=== PATIENT | male | born 1950 | race Caucasian/White ===

== ENCOUNTER → 2024-11-18 | Day surgery (SDC) | payer OTHER, SELFPAY ==
--- NOTE | 2024-11-15 11:52 | EKG_ITS ---
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
[2024-11-15 13:12] LABS: Basophils % (Auto) 1 % (0-2.5); Eosinophils # (Auto) 0.1 Thou/mm3 (0.0-0.5); Eosinophils % (Auto) 2 % (0-10); Immature Granulocytes % (Auto) 1 % (0-0); Immature Granulocytes Auto 0.03 Thou/mm3 (0.00-0.00); Lymphocytes # (Auto) 1.5 Thou/mm3 (1.0-4.8); Lymphocytes % (Auto) 25 % (10-50); Mean Corpuscular HGB Conc 34.2 g/dl (31.0-37.0); Mean Corpuscular Hemoglobin 34.4 pg (25.0-35.0); Mean Corpuscular Volume 101 fL (80-100); Monocytes # (Auto) 0.5 Thou/mm3 (0.0-0.8); Monocytes % (Auto) 8 % (0-12); Neutrophils # (Auto) 3.9 Thou/mm3 (1.8-7.7); Neutrophils % (Auto) 63 % (37-80); Nucleated Red Blood Cell % 0 /100 WBC (0); Platelet Count 128 Thou/mm3 (140-440); RDW Standard Deviation 47.9 fL (35.1-43.9); Red Blood Count 3.78 Miln/mm3 (4.50-5.90); White Blood Count 6.1 Thou/mm3 (3.8-10.6)
[2024-11-15 13:22] LABS: Partial Thromboplastin Time 23.9 Seconds (22.0-36.0); Prothrombin Time 11.1 Seconds (9.0-12.2)
[2024-11-15 13:24] LABS: Anion Gap 8 (7-16); BUN/Creatinine Ratio 18 Ratio (12-20); Blood Urea Nitrogen 23 mg/dL (9-23); Calcium 8.8 mg/dL (8.3-10.6); Carbon Dioxide 27.2 mMol/L (20.0-31.0); Chloride 107 mMol/L (98-107); Creatinine (Component) 1.3 mg/dL (0.6-1.3); Glucose 113 mg/dL (74-106); Osmolality,Calculated 287 (275-295); Potassium 4.7 mMol/L (3.4-5.1); Sodium 142 mMol/L (136-145); eGFR 58 See Note
[2024-11-15 15:02] VITALS: BMI 31.5
[2024-11-18] VITALS (22 sets, daily range): BP systolic 125–195; BP diastolic 70–98; PULSE 51–69; RESP 12–20; TEMP 36.1–36.5; O2SAT 95–99; BMI 32.1
[2024-11-18] MEDS: hydrALAZINE INJ 20 MG/ML VIAL 10 MG IV ×2 (10:16→10:50)
[2024-11-18] MEDS: HYDROcodone/APAP 5/325 TABLET 1 TAB PO (12:00)
--- NOTE | 2024-11-18 12:25 | PC.NURSE ---
1011 patient is awake, alert, breathing unlabored, s/p LHC by Dr. Cody, arterial sheath present to right groin, no active bleeding noted. Report received from Vickey RN, patient to recover for 6 hrs post hemostasis. May remove arterial sheath now. Blood pressur elevated, Dr. Cody notified, new order received for hydralazine IVP. 1016 hydralazine 10mg given IVP 1043 arterial sheath removed from right groin, manual pressure applied 1103 Manual pressure removed, no active bleeding or hematoma noted, site covered with 4x4 and tegaderm, sand bag applied 1133 sandbag removed, no bleeding or hematoma noted. 1200 patient starting to complain of generalized pain from laying flat, especially shoulder pain which has been chronic. norco 5/325 1 tab given after eating sandwich.
--- NOTE | 2024-11-18 13:43 | ESOP_ITS ---
RE: MINH MITCHELL : 1950 DATE OF OPERATION: 11/18/2024 PROCEDURE PERFORMED: 1. Left heart catheterization. 2. LV angiography. 3. Selective left and right coronary angiography. 4. Aortic root angiography, 5. Selective bypass graft angiography. 6. Selective right femoral arterial angiography. 7. Conscious sedation monitoring. INDICATIONS FOR PROCEDURE: The patient with history of chronic hypertension, history of hyperlipidemia, history of arteriosclerotic heart disease requiring coronary artery bypass graft surgery in 1993. The patient is having severe symptoms of anginal chest pain in spite of medical management. DETAILS OF THE PROCEDURE: After explaining the procedure in detail to the patient and after obtaining a proper consent, the patient was given a total of 1 mg of intravenous Versed and 75 mcg of intravenous fentanyl before and during the procedure. The right groin area was prepped with antiseptic solution. Local anesthetic 2% lidocaine was used and right femoral artery was punctured by Seldinger technique and a Hemoclip sheath size 6-Cuban was put in the right femoral artery. Through the sheath, a pigtail catheter size 6-Cuban was advanced though difficulty was noted to advance the pigtail catheter with the guidewire in the lower abdominal area. The guidewire at that time was changed to a glidewire, which was able to be advanced and the pigtail catheter was put in the ascending aorta. Aortic pressure was recorded and catheter was placed across the aortic valve into the left ventricle. Left ventricular pressure was recorded and LV angiography was performed in JORDAN view using 36 mL of dye at a rate of 12 mL per second over a period of 3 seconds. After the left ventricular angiography, the pullback pressure recorded from left ventricle into the aorta and aortic root angiography was performed in [place] view using 30 mL of dye at a rate of 15 mL per second over a period of 2 seconds. After the aortic root angiography, the catheter was exchanged using an exchange wire with the left coronary Dinorah catheter size 6-Cuban JL4. The catheter was positioned at the ostium of the left main coronary artery and left coronary angiography was performed in several different views. After the left coronary angiography, the catheter was exchanged with preformed right coronary Dinorah catheter size 6-Cuban JR4, which was advanced with the help of a J-wire and positioned over the right coronary ostium. Three views of the right coronary artery were taken and after the right coronary angiography with the same catheter, vein bypass graft angiography was performed. After the vein bypass graft angiography, the catheter was exchanged with left 5-Cuban internal mammary artery catheter, though difficulty was noted to advance the internal mammary artery catheter, size 5-Cuban, which was then changed to size 6-Cuban internal mammary artery catheter, which was able to be advanced and positioned in the proximal left subclavian artery and left subclavian artery angiography was performed in two different views. The internal mammary artery noted to be a very small caliber vestigial vessel. At that point, the catheter was pulled out and right femoral arterial angiography was performed in [place] as well as in [place] views. As the distal right common femoral artery showed calcification and puncture site was close to the bifurcation, the local pressure was applied to obtain hemostasis of the right femoral arterial puncture site. The patient tolerated the procedure very well without any complication. RESULTS OF THE PROCEDURE: As follows The hemodynamic data showed aortic pressure 176/75 with a mean of 110. The left ventricular pressure 181/20. The post angiography, left ventricular pressure 169/19. There is no gradient noted across the aortic valve on pullback pressure. The left ventricular angiography showed normal-sized left ventricle with small segment of mid anterior wall akinesis with overall fairly good left ventricular systolic function with ejection fraction of 50%. No evidence of mitral regurgitation is noted. The aortic root angiography showed normal-sized aortic root with single vein bypass graft visualized. No evidence of aortic regurgitation is noted. Coronary angiography showed left main coronary artery normal. The left anterior descending coronary artery is totally occluded at its ostium and is calcified. The distal left anterior descending coronary artery is filling from the vein bypass graft. The circumflex coronary artery showed 90% calcific stenosis in its proximal portion, which extends beyond the first obtuse marginal branch. The first obtuse marginal branch though is a tiny caliber vessel. The distal circumflex coronary artery is normal and is free of any luminal narrowing with good flow. Right coronary angiography showed large dominant right coronary artery with 80% eccentric stenosis, which is calcific in its proximal portion and 70% eccentric stenosis, which is calcific in its mid portion. Good distal flow in the right coronary artery is noted. The posterior descending branch as well as LV posterolateral branch of the right coronary artery are normal. The vein bypass graft to the mid left anterior descending coronary artery is patent and is free of any luminal narrowing. Good distal flow is noted in the left anterior descending coronary artery. The left subclavian angiography showed normal proximal portion with the left internal mammary artery being very vestigial and tiny caliber. The right femoral arterial angiography showed luminal irregularity with calcification in the distal right common femoral artery and 20% stenosis. The puncture site is close to the bifurcation of the right common femoral artery. FINAL IMPRESSION: 1. Severe unga vessel coronary artery disease with 100% occlusion of the proximal left anterior descending coronary artery, 90% calcific stenosis of the proximal left circumflex coronary artery, 80% eccentric and calcific stenosis of the proximal right coronary artery, and 70% calcific and eccentric stenosis of the mid right coronary artery. 2. Patent vein bypass graft to the mid left anterior descending coronary artery. 3. Small segment of left ventricular anterior wall akinesis with overall normal left ventricular systolic function with ejection fraction of 50%. 4. Calcification and mild stenosis of the distal right common femoral artery. RECOMMENDATIONS: The patient was referred to Dr. Jung Salazar for evaluation for possible percutaneous coronary intervention of the calcific proximal left circumflex coronary artery as well as proximal and mid right coronary artery. DT: 10:54:40 TT: 13:42:00 Ref: [id number] - TID: [id number]
--- NOTE | 2024-11-18 14:10 | PC.NURSE ---
1245 patient is awake, alert, breathing unlabored, dressing to right groin dry with no bleeding, report given to Carla ALAMO, pt voided 50ml via urinal 1320 report received from Carla ALAMO, dressing to right groin dry with no bleeding or hematoma, pt voided 25ml via urinal
--- NOTE | 2024-11-18 16:10 | PC.NURSE ---
patient awake, alert, breathing unlabored, dressing to right groin dry with no bleeding, report given to Carla ALAMO, patient to be discharged 1702.
== END | disposition home or self-care (01) ==
PROVIDERS: Referring Provider Internal Medicine Cardiovascular Disease; Visit Provider Internal Medicine Cardiovascular Disease
PROC: (CPT 93459; principal; 2024-11-18 08:30)
DX: I25.119 Atherosclerotic heart disease of native coronary artery with unspecified angina pectoris (principal); I25.82 Chronic total occlusion of coronary artery; I10 Essential (primary) hypertension; E78.5 Hyperlipidemia, unspecified; I48.0 Paroxysmal atrial fibrillation; F03.90 Unspecified dementia, unspecified severity, without behavioral disturbance, psychotic disturbance, mood disturbance, and anxiety; R56.9 Unspecified convulsions; Z95.1 Presence of aortocoronary bypass graft; F17.210 Nicotine dependence, cigarettes, uncomplicated; Z95.0 Presence of cardiac pacemaker; Z79.899 Other long term (current) drug therapy; Z79.01 Long term (current) use of anticoagulants; Z91.013 Allergy to seafood; Z01.810 Encounter for preprocedural cardiovascular examination
CPT/HCPCS: 93459; G0278; 36415; 80048; 85025; 85610; 85730; 93005; 99152; 99153; A4649; C1769; C1887; C1894; J0171; J0360; J0461; J1643; J2250; J2310; J2371; J3010; J3490; A9270

== ENCOUNTER 2024-11-29 10:01 | Day surgery (SDC) | payer OTHER, MEDICARE, SELFPAY ==
[2024-11-27 15:43] VITALS: BMI 32.1
--- NOTE | 2024-11-28 09:45 | EKG_ITS ---
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
[2024-11-28 10:27] LABS: Basophils # (Auto) 0.1 Thou/mm3 (0.0-0.2); Basophils % (Auto) 1 % (0-2.5); Eosinophils # (Auto) 0.2 Thou/mm3 (0.0-0.5); Eosinophils % (Auto) 3 % (0-10); Hemoglobin 13.1 g/dL (13.5-16.0); Immature Granulocytes % (Auto) 1 % (0-0); Immature Granulocytes Auto 0.04 Thou/mm3 (0.00-0.00); Lymphocytes # (Auto) 1.7 Thou/mm3 (1.0-4.8); Lymphocytes % (Auto) 23 % (10-50); Mean Corpuscular HGB Conc 32.8 g/dl (31.0-37.0); Mean Corpuscular Hemoglobin 34.6 pg (25.0-35.0); Mean Corpuscular Volume 106 fL (80-100); Monocytes # (Auto) 0.5 Thou/mm3 (0.0-0.8); Monocytes % (Auto) 7 % (0-12); Neutrophils # (Auto) 4.9 Thou/mm3 (1.8-7.7); Neutrophils % (Auto) 66 % (37-80); Nucleated Red Blood Cell % 0 /100 WBC (0); Platelet Count 153 Thou/mm3 (140-440); RDW Standard Deviation 52.3 fL (35.1-43.9); Red Blood Count 3.79 Miln/mm3 (4.50-5.90); White Blood Count 7.3 Thou/mm3 (3.8-10.6)
[2024-11-28 10:35] LABS: Anion Gap 8 (7-16); BUN/Creatinine Ratio 15 Ratio (12-20); Blood Urea Nitrogen 18 mg/dL (9-23); Calcium 8.6 mg/dL (8.3-10.6); Carbon Dioxide 27.5 mMol/L (20.0-31.0); Chloride 108 mMol/L (98-107); Creatinine (Component) 1.2 mg/dL (0.6-1.3); Estimated Creatinine Clearance 65.5 mL/min (>60); Glucose 134 mg/dL (74-106); Osmolality,Calculated 288 (275-295); Potassium 4.7 mMol/L (3.4-5.1); Sodium 143 mMol/L (136-145); eGFR > 60 See Note
[2024-11-28 10:52] LABS: Partial Thromboplastin Time 24.3 Seconds (22.0-36.0)
[2024-11-29] VITALS (14 sets, daily range): BP systolic 106–156; BP diastolic 63–93; PULSE 52–67; RESP 14–23; TEMP 36.4–36.5; O2SAT 94–98
[2024-11-29 14:30] LABS: ACT (CATH LAB ONLY) > 500.0 Seconds (89-169)
--- NOTE | 2024-11-29 18:10 | PC.NURSE ---
1505 patient is awake, alert, breathing unlabored, s/p LHC, PCI by Dr. Salazar, Tr band to right wrist, no bleeding or hematoma noted, report received from Manpreet ALAMO, patient to recover for 4 hours, and 1hr post TR band removal. Pt to continue asprin and start plavix. Stop eliquis. 1554 2ml air removed from TR band since hemostasis was 1349. 1635 TR band removed, no bleeding or hematoma noted 1805 patient is awake, alert, breathing unlabored, dressing to right wrist dry with no bleeding or hematoma, discharge insructions given to patient and , patient discharged home in wheelchair with all belongins. Pt has aspirin and plavix available to take at home.
--- NOTE | 2024-11-29 21:03 | ESOP_ITS ---
RE: MINH MITCHELL : 1950 DATE OF OPERATION: 11/29/2024 PROCEDURES PERFORMED: 1. Complex PCI, PTCA and stent placement in the proximal left circumflex artery and distal left main coronary artery with placement of drug eluding stent, 3.0 x 12 mm [place] Medtr[place] 48047 2. PTCA coronary angioplasty of the complex mid circumflex artery, second lesion CPT 12549. 3. Conscious sedation of 1 hour duration. 4. Ultrasound-guided access of right radial artery. 5. Attempted intravascular lithotripsy unsuccessful. DIAGNOSES: Coronary artery disease, status post bypass surgery, recurrent chest pain, class III angina pectoris, multivessel coronary artery disease, vein graft to LAD patent, but circumflex artery and right coronary artery has severe stenosis. HISTORY AND INDICATIONS: The patient is a 74-year-old male with history of coronary artery disease, bypass surgery, hypertension and hypercholesterolemia, doing well until recently. He has had recurrent substernal chest pain, crescendo angina pectoris for the last few months. Dr. Shi performed coronary angiogram showed that vein graft to LAD was patent, but no other grafts were present. Right coronary angiography showed calcification and [id number] stenosis. The left circumflex artery showed a 95% stenosis of the proximal circumflex artery and moderate stenosis of the mid circumflex artery. Complex angioplasty and stent placement to the posterior circumflex artery was recommended. DESCRIPTION OF PROCEDURE: The patient was brought to the cardiac catheterization laboratory. He was given 2 mg of Versed and 100 mcg fentanyl for conscious sedation. The right radial approach was taken. The right radial artery was cannulated using micropuncture technique and a 6-Greenlandic Glidesheath introduced. The left main coronary artery was cannulated via a 6- Greenlandic JL 3.5 guiding catheter. A 0.014 run-through guidewire was used to cross the lesion successfully, able to dilate the proximal circumflex artery with 2.5 mm balloon, but the mid circumflex artery could not be crosssed and could not get adequate support. Guidezilla support was also not adequate. I changed the guiding catheter to 6-Greenlandic Voda Left VL 3.5 guiding catheter, adequate support and Guidezilla. Multiple long wire technique was also used, both run-through and Net Lead Developer 50 guidewire was used, able to dilate the proximal circumflex artery with 2.5 mm balloon. The mid circumflex also was dilated with 2.5 mm balloon as well as 3 mm balloon catheter by Sunible, 3 x 15 mm balloon was used to dilate aggressively. It was able to expand even though there was a speck of calcification. Subsequently, a 3.0 x 12 mm drug-eluting stent by Medtronic José Manuel stent was deployed at 16 atmospheres of pressure up to 18 atmospheric pressure was used. Intravascular lithotripsy, a 3 mm balloon was then advanced over the wire. I could not negotiate the turn and calcification into the mid circumflex artery. I felt the ROSE flow was excellent. There was only moderate 30% residual stenosis, hence we left the lesion alone for now. Final angiography showed a widely patent proximal circumflex artery and distal left main with no residual stenosis. The mid circumflex artery showed evidence of a 30% residual stenosis, an eccentric lesion with calcification only. The rest of the circumflex artery was patent. One of the obtuse marginal branches showed a moderate lesion as well. FINAL SUMMARY: 1. Successful PCI with stent placement in the proximal left circumflex artery. 2. Successful angioplasty of the mid circumflex artery. Pre-procedure stenosis of the proximal circumflex artery is 95%, post-procedure was 0. ROSE flow pre-procedure was 2, postprocedure was 3. Lesion #2, mid circumflex artery angioplasty successful. Preprocedure stenosis 80%, post-procedure stenosis was about 20-30%. RECOMMENDATIONS: Continue medical management. We will re-evaluate in 3 months. If the circumflex artery stent is patent, we will go ahead and proceed with PCI of the RCA. If there is restenosis, we consider rotational atherectomy of the mid circumflex artery later on. cc: Ata Cody MD DT: 19:17:19 TT: 20:54:00 Ref: [id number] - TID: [id number] [facility] SHOREJerome
== END 2024-11-29 18:05 | disposition home or self-care (01) ==
PROVIDERS: Referring Provider Internal Medicine Cardiovascular Disease; Visit Provider Internal Medicine Cardiovascular Disease
PROC: (CPT 92972; principal; 2024-11-29 11:30)
DX: I25.118 Atherosclerotic heart disease of native coronary artery with other forms of angina pectoris (principal); E78.00 Pure hypercholesterolemia, unspecified; I10 Essential (primary) hypertension; Z95.1 Presence of aortocoronary bypass graft; Z98.84 Bariatric surgery status; Z01.810 Encounter for preprocedural cardiovascular examination
CPT/HCPCS: 92972; C9600; 36415; 80048; 85025; 85347; 85610; 85730; 93005; 99152; 99153; A4649; A4699; C1725; C1761; C1769; C1874; C1887; J0171; J0461; J1200; J1643; J1720; J2250; J2310; J2371; J3010; J3490; Q9967; A9270; J2305

== ENCOUNTER 2025-02-13 10:11 | Day surgery (SDC) | payer OTHER, SELFPAY ==
--- NOTE | 2025-02-11 09:44 | EKG_ITS ---
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
[2025-02-11 11:41] LABS: Basophils # (Auto) 0.1 Thou/mm3 (0.0-0.2); Basophils % (Auto) 1 % (0-2.5); Eosinophils # (Auto) 0.2 Thou/mm3 (0.0-0.5); Eosinophils % (Auto) 2 % (0-10); Hematocrit 42.3 % (41.0-53.0); Hemoglobin 13.6 g/dL (13.5-16.0); Immature Granulocytes Auto 0.03 Thou/mm3 (0.00-0.00); Lymphocytes # (Auto) 1.6 Thou/mm3 (1.0-4.8); Lymphocytes % (Auto) 20 % (10-50); Mean Corpuscular HGB Conc 32.2 g/dl (31.0-37.0); Mean Corpuscular Hemoglobin 34.2 pg (25.0-35.0); Mean Corpuscular Volume 106 fL (80-100); Monocytes # (Auto) 0.5 Thou/mm3 (0.0-0.8); Monocytes % (Auto) 7 % (0-12); Neutrophils # (Auto) 5.4 Thou/mm3 (1.8-7.7); Neutrophils % (Auto) 70 % (37-80); Nucleated Red Blood Cell # 0.00 Thou/mm3 (0.00-0.00); Nucleated Red Blood Cell % 0 /100 WBC (0); Platelet Count 149 Thou/mm3 (140-440); RDW Standard Deviation 50.9 fL (35.1-43.9); Red Blood Count 3.98 Miln/mm3 (4.50-5.90); White Blood Count 7.8 Thou/mm3 (3.8-10.6)
[2025-02-11 11:47] LABS: Anion Gap 11 (7-16); BUN/Creatinine Ratio 12 Ratio (12-20); Blood Urea Nitrogen 15 mg/dL (9-23); Calcium 9.2 mg/dL (8.3-10.6); Carbon Dioxide 26.4 mMol/L (20.0-31.0); Chloride 110 mMol/L (98-107); Creatinine (Component) 1.3 mg/dL (0.6-1.3); Glucose 134 mg/dL (74-106); INR 1.0 (0.9-1.3); Osmolality,Calculated 295 (275-295); Partial Thromboplastin Time 23.7 Seconds (22.0-36.0); Potassium 4.4 mMol/L (3.4-5.1); Prothrombin Time 11.0 Seconds (9.0-12.2); Sodium 147 mMol/L (136-145); eGFR 58 See Note
[2025-02-11 16:10] VITALS: BMI 31.2
[2025-02-13] VITALS (18 sets, daily range): BP systolic 120–167; BP diastolic 71–113; PULSE 56–71; RESP 10–21; TEMP 36.6–37.1; O2SAT 97–100
--- NOTE | 2025-02-13 14:02 | EKG_ITS ---
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 : 1950 Requested By: Jung Pompa Order Number: [id number] Reading MD: Jung Pompa Measurements Intervals [place] Rate: 55 P: 252 [place]: 130 QRS: 26 QRSD: 123 T: 56 QT: 470 QTc: 453 Interpretive Statements JUNCTIONAL BRADYCARDIA MODERATE INTRAVENTRICULAR CONDUCTION DELAY [105+ ms QRS DURATION, 80+ ms Q/S IN V1/V2, NO Q AND 60+ ms R IN I/aVL/V5/V6] ST DEVIATION AND MODERATE T-WAVE ABNORMALITY, CONSIDER ANTERIOR ISCHEMIA [-0.1+ mV T WAVE IN V3/V4] Compared to ECG 02/11/2025 10:24:19 Possible ischemia now present Atrial-paced complex(es) or rhythm no longer present T-wave abnormality still present /store/S0/[id number]/ecg/[id number].pdf
[2025-02-13] MEDS: EPTIFIBATIDE 17.8 MG IV ×2 (14:20→14:30)
--- NOTE | 2025-02-13 15:20 | PC.NURSE ---
Upon removing patient off the table in Registered Nurse Maternity patient began complaining of chest pain 03/26. Dr Salazar contacted and orders given for nitroglycerin sublingual and morphine. Both were given and documented in [facility]. Stat EKG completed at bedside. then ordered for x2 integrillin bolus's. and showed up to bedside to assess the patient. Patient taken back laboratory technical specialist to assess patients stents.
[2025-02-13] MEDS: CLOPIDOGREL BISULFATE 300 MG TABLET PO (15:46)
--- NOTE | 2025-02-13 16:47 | PC.NURSE ---
Removed sheath per Dr. Salazar order. Held pressure for 25 minutes. Dressing and steri strips applied. Large tegaderm applied. Instructed patient to stay flat until instructed not to. Educated patient on groin managment for recovery and at home. Patient and verbalized understanding. Will continue to monitor. No signs or symptoms of acute distress. No complaints of pain. Hand off report given to Solange ALAMO.
[2025-02-14 09:43] LABS: ACT (CATH LAB ONLY) 366.0 Seconds (89-169)
--- NOTE | 2025-02-14 10:13 | ESOP_ITS ---
RE: MINH MITCHELL : 1950 DATE OF OPERATION: 02/13/2025 PROCEDURES PERFORMED: 1. Diagnostic left heart cardiac catheterization, selective right and left coronary angiogram, left ventricular angiogram, CPT 97386. 2. Complex PCI (percutaneous coronary intervention) of the proximal right coronary artery and placement of drug-eluting stent with intravascular coronary lithotripsy, balloon angioplasty and stent placement of proximal right coronary artery, placement of drug-eluting stent, 4.0 x 12 mm Medtronic [place] drug-eluting stent. Pre-procedure stenosis 90% complex calcified type C leasion post-procedure 0%. ROSE flow pre-procedure 3, post-procedure 3, CPT CODE 19438. 3. Complex percutaneous coronary intervention with PCI, PTCA stent placement of the mid left circumflex artery and used intravascular coronary lithotripsy, balloon angioplasty followed by stent placement using a 3.5 x 26 mm [place] Medtronic drug-eluting stent. Pre- procedure stenosis 95% with heavy calcification. Post-procedure stenosis 0%. ROSE flow pre-procedure 3, post-procedure 3, CPT 19268. 4. Intravascular coronary lithotripsy of the right coronary artery was performed successfully with an excellent angiographic result. add on cpt code 15684 Conscious sedation for 2-hour duration. 5. Ultrasound-guided access of the right radial artery. 6. Conscious sedation for 2-hour duration DIAGNOSES: 1. Coronary artery disease. 2. Crescendo class III angina pectoris, on maximum medical management. 3. Multivessel coronary artery disease. 4. Complex coronary artery disease with proximal RCA, mid RCA showed heavy calcified nodules with complex anatomy and 90% stenosis. HISTORY AND INDICATIONS: The patient continued to have recurrent chest pain. He has no history of CAD, bypass graft surgery. He had a stent placement of the circumflex artery with complex PCI a month and a half ago. Continued to have angina. Recommended to have coronary angiogram, if left circumflex artery and to proceed with complex PCI of the right coronary artery. DESCRIPTION OF PROCEDURE: The patient was brought to the cardiac catheterization laboratory. He was given 2 mg of Versed and 100 mcg of fentanyl for sedation. Right radial approach was taken. Right radial artery was cannulated by micropuncture technique. A 6-Ethiopian Glidesheath was introduced. Radial cocktail was given. Subsequently, a diagnostic left coronary angiogram was performed by TIG 4 diagnostic catheter. Left heart catheterization and left ventricular angiogram were performed by TIG-4 diagnostic catheter. Right coronary angiogram was performed by TIG-4 diagnostic catheter. Diagnostic procedure showed following findings: Left heart catheterization showed left ventricular pressure 116/10, aortic pressure 116/70. No gradient across the aortic valve. Left ventricular angiogram showed evidence of preserved left ventricular ejection fraction of 55%. Coronary angiogram showed the following: Right coronary artery is large and dominant, showed calcification of the proximal, mid and distal RCA. Proximal right coronary artery showed nodular calcification with 90% stenosis, eccentric lesion. Mid RCA showed evidence of 95% stenosis and nodular heavy calcification. PDA and PL branches are normal. Left coronary system: The left main coronary artery is normal. Left anterior descending artery is occluded. The patient did have a patent SOTELO to LAD. Circumflex artery showed evidence of a stent in the proximal RCA widely patent. Mid RCA also showed mild disease. No significant stenosis. The previously stented segments are normal. Following diagnostic interventions undertaken: Complex PCI of the right coronary artery was then performed. FR4 guiding catheter was used to cannulate the right coronary artery. 0.014 Runthrough guidewire was used to cross the lesion successfully. Pre-dilation of the lesions, both proximal and mid RCA lesions performed by 2.5 mm Medtronic compliance balloon catheter. Subsequently, I attempted to pass the intracoronary lithotripsy 3.5 mm balloon by shockwave lithotripsy balloon, could not pass the lesion. I used an Extra Support guidewire as well as a Mailman guidewire could not successfully cross. Predilated lesion one more time with a 3 mm balloon and also a 3.5 mm balloon still unable to cross the lesion with the intravascular lithotripsy balloon catheter. Subsequently, a Guidezilla guiding support was also used, unable to cross. Finally, using a Mailman wire as well as a Bulk Delivery Driver 50 guidewire. On Bulk Delivery Driver 50 guidewire, I was able to pass the intravascular lithotripsy balloon 3.5 mm catheter and placed in the mid RCA and 30 seconds was performed. Multiple segments across the mid segment were treated. 120 seconds of treatment was given for the proximal and mid RCA. After successful IVL balloon angioplasty, I was able to successfully placed stent. Mid RCA stent placement was performed by 3.5 mm x 26 mm Medtronic stent, which was deployed in the mid RCA. Proximal RCA stent placement was performed using a 4 mm x 12 mm Medtronic José Manuel stent was deployed in the proximal right coronary artery. Final angiogram after successful stent placement showed a widely patent right coronary artery with an excellent angiographic result. After about 10 minutes or so, the patient had some discomfort in the chest. The patient had reevaluated coronary artery by femoral approach performed by Dr. Bettencourt showed that the right coronary artery is widely patent with no residual stenosis. The patient's chest pain subsequently improved significantly. The patient was given a loading dose of aspirin and Plavix 600 mg was given. He will be discharged on Brilinta 90 mg twice daily. SUMMARY: 1. Highly complex percutaneous coronary intervention with heavily calcified coronary artery with complex anatomy. Underwent successful complex PCI. Placed drug-eluting stent proximal RCA 4 x 12 Medtronic stent and 3.75 x 26 mm stent in the mid RCA. 2. Intravascular lithotripsy, balloon angioplasty also performed, IVL. 3. Left circumflex artery previously stented segment and widely patent circumflex artery and preserved ejection fraction. cc: Ata Cody MD DT: 09:00:38 TT: 10:06:00 Ref: [id number] - TID: [id number] URBAN
[2025-02-14 14:43] LABS: ACT (CATH LAB ONLY) 239.0 Seconds (89-169)
== END 2025-02-13 21:20 | disposition home or self-care (01) ==
PROVIDERS: Referring Provider Internal Medicine Cardiovascular Disease; Visit Provider Internal Medicine Cardiovascular Disease
PROC: (CPT 93458; principal; 2025-02-13 11:30)
PROC: (CPT 93458; 2025-02-13 11:30)
DX: T82.858A Stenosis of other vascular prosthetic devices, implants and grafts, initial encounter (principal); I25.738 Atherosclerosis of nonautologous biological coronary artery bypass graft(s) with other forms of angina pectoris; Z95.5 Presence of coronary angioplasty implant and graft; Z01.810 Encounter for preprocedural cardiovascular examination; I10 Essential (primary) hypertension; Z95.0 Presence of cardiac pacemaker
CPT/HCPCS: 93458; 92972; C9600; C9601; 36415; 80048; 85025; 85347; 85610; 85730; 93005; 99152; 99153; A4649; A4699; C1725; C1751; C1761; C1769; C1874; C1887; C1894; J0153; J0168; J0461; J1200; J1327; J1643; J1720; J2250; J2270; J2310; J2371; J3010; J3490; Q9967; A9270